=== PATIENT | female | born 1980 | race Caucasian/White ===

== ENCOUNTER 2018-09-18 08:34 | Day surgery (SDC) | payer OTHER ==
[~2018-09-18] VITALS: Ht 165.1 cm; Wt 102.3 kg
[~2018-09-18 08:34] MED LIST: DOCU100 PO; DULO60 PO; ERGO50000 PO; IBUP800 PO; LORA10ER PO; OTC ALLERGY MED; Percocet 5-3251 EACH PO
[2018-09-18] MEDS ORDERED: IBUP100S (09:01)
== END 2018-09-18 11:18 | disposition home or self-care (01) ==
LOC: ORSCSDS 08:34
PROVIDERS: Student in an Organized Health Care Education/Training Program
PROC: 0DB58ZX Excision of Esophagus, Via Natural or Artificial Opening Endoscopic, Diagnostic (ICD-10-PCS; principal; 2018-09-18 09:45)
PROC: 0DBM8ZX Excision of Descending Colon, Via Natural or Artificial Opening Endoscopic, Diagnostic (ICD-10-PCS; principal; 2018-09-18 09:45)
PROC: 0DB68ZX Excision of Stomach, Via Natural or Artificial Opening Endoscopic, Diagnostic (ICD-10-PCS; principal; 2018-09-18 09:45)
PROC: 0DB98ZX Excision of Duodenum, Via Natural or Artificial Opening Endoscopic, Diagnostic (ICD-10-PCS; principal; 2018-09-18 09:45)
PROC: 0DBN8ZX Excision of Sigmoid Colon, Via Natural or Artificial Opening Endoscopic, Diagnostic (ICD-10-PCS; principal; 2018-09-18 09:45)
DX: K92.1 Melena (principal); K21.9 Gastro-esophageal reflux disease without esophagitis; R10.9 Unspecified abdominal pain; Z80.0 Family history of malignant neoplasm of digestive organs; K29.80 Duodenitis without bleeding; D12.5 Benign neoplasm of sigmoid colon; D12.4 Benign neoplasm of descending colon; K57.30 Diverticulosis of large intestine without perforation or abscess without bleeding; K64.8 Other hemorrhoids; K29.70 Gastritis, unspecified, without bleeding; R13.14 Dysphagia, pharyngoesophageal phase
CPT/HCPCS: 88305; 88342; J2704; J7120

== ENCOUNTER 2020-04-24 08:37 | Emergency (ER) | payer OTHER ==
[~2020-04-24] VITALS: Ht 165.1 cm; Wt 106.6 kg
[~2020-04-24 08:37] MED LIST changes: +IBUP100S
[2020-04-24 09:23] LABS: Source, Urine Clean Catch
[2020-04-24 09:30] LABS: Appearance, Urine Hazy (Clear); Bilirubin, Urine Neg (Neg); Blood, Urine Neg (Neg); Color, Urine Yellow (P-Yellow); Glucose Qualitative, Urine Neg (Neg); Ketones, Urine Neg (Neg); Leukocyte Esterase, Urine Neg (Neg); Nitrite, Urine Neg (Neg); Protein, Urine Neg (Neg); Specific Gravity, Urine 1.015 (1.003-1.022); Urobilinogen, Urine NORM (Normal)
[2020-04-24 09:39] LABS: Amorphous Mod (0-Heavy); Bacteria Few /hpf; Red Blood Cells, Urine Not Seen /hpf (0-2); Squamous Epithelial Cells Many /hpf (Few); White Blood Cells, Urine Not Seen /hpf (0-5)
[2020-04-24 09:45] LABS: BASOPHILS ABSOLUTE AUTO 0.04 K/mm3 (0.00-0.23); BASOPHILS PERCENT AUTO 1 % (0-2); EOSINOPHILS ABSOLUTE AUTO 0.11 K/mm3 (0.00-0.68); EOSINOPHILS PERCENT AUTO 1 % (0-6); Hematocrit 40.6 % (33.0-51.0); IMMATURE GRAN ABSOLUTE AUTO 0.02 K/mm3 (0.00-0.10); IMMATURE GRAN PERCENT AUTO 0 % (0-1); LYMPHOCYTES ABSOLUTE AUTO 2.14 K/mm3 (0.84-5.20); LYMPHOCYTES PERCENT AUTO 24 % (21-46); MONOCYTES ABSOLUTE AUTO 0.33 K/mm3 (0.16-1.47); MONOCYTES PERCENT AUTO 4 % (4-13); Mean Corpuscular Volume 84 fL (80-100); Mean Platelet Volume 10.4 fL (9.1-12.4); NEUTROPHILS PERCENT AUTO 70 % (41-73); Platelet Count 343 K/mm3 (150-400); RDW Coefficient Variation 13.3 % (11.7-14.2); RDW Standard Deviation 41.6 fL (35.1-46.3); Red Blood Cell Count 4.81 M/mm3 (3.80-5.20); White Blood Cell Count 8.84 K/mm3 (4.00-11.30)
[2020-04-24 10:05] LABS: Alanine Aminotransfer (ALT/SGP 34 U/L (12-78); Albumin, Blood 3.5 g/dL (3.4-5.0); Albumin/Globulin Ratio 1.1 (0.8-1.8); Alk Phos 73 U/L (50-136); Anion Gap 4 mmol/L (6-16); Aspartate Aminotrans (AST/SGOT 34 U/L (12-37); Bilirubin, Total 0.6 mg/dL (0.1-1.0); Blood Urea Nitrogen 6 mg/dL (8-24); Bun/Creatinine Ratio 7.4 (12.0-20.0); CO2, Blood 28 mmol/L (21-32); Calcium, Blood 8.8 mg/dL (8.5-10.1); Chloride, Blood 110 mmol/L (98-108); Creatinine, Blood 0.81 mg/dL (0.40-1.00); Globulin, Blood 3.3 g/dL (2.2-4.0); Glomerular Filtration Rate >60 (60-); Glucose, Blood 101 mg/dL (70-99); Potassium, Blood 3.8 mmol/L (3.5-5.5); Sodium, Blood 142 mmol/L (136-145); Total Protein, Blood 6.8 g/dL (6.4-8.2)
[2020-04-24] MEDS ORDERED: ONDA4ODT MM (11:22)
[2020-04-24] MEDS ORDERED: Norco 7.5-3251 EACH PO (11:22)
== END 2020-04-24 11:34 | disposition home or self-care (01) ==
LOC: ER 08:37
PROVIDERS: Emergency Medicine
DX: M79.3 Panniculitis, unspecified (principal); Z88.8 Allergy status to other drugs, medicaments and biological substances; Z79.899 Other long term (current) drug therapy
CPT/HCPCS: 36415; 74177; 80053; 81001; 81025; 83690; 85025; 87086; 96361; 96374-59; 96375; 99284-25; J1170; J2405; J7030; Q9967

== ENCOUNTER 2020-07-21 10:06 | Day surgery (SDC) | payer OTHER ==
[~2020-07-21] VITALS: Ht 165.1 cm; Wt 102.6 kg
[~2020-07-21 10:06] MED LIST changes: +Norco 7.5-3251 EACH PO; +ONDA4ODT MM
== END 2020-07-21 12:13 | disposition home or self-care (01) ==
LOC: ORSCSDS 10:06
PROVIDERS: Student in an Organized Health Care Education/Training Program
PROC: 0DB78ZX Excision of Stomach, Pylorus, Via Natural or Artificial Opening Endoscopic, Diagnostic (ICD-10-PCS; principal; 2020-07-21 11:30)
PROC: 0DB58ZX Excision of Esophagus, Via Natural or Artificial Opening Endoscopic, Diagnostic (ICD-10-PCS; principal; 2020-07-21 11:30)
PROC: 0DBL8ZX Excision of Transverse Colon, Via Natural or Artificial Opening Endoscopic, Diagnostic (ICD-10-PCS; principal; 2020-07-21 11:30)
PROC: 0DB98ZX Excision of Duodenum, Via Natural or Artificial Opening Endoscopic, Diagnostic (ICD-10-PCS; principal; 2020-07-21 11:30)
DX: R10.13 Epigastric pain (principal); R13.10 Dysphagia, unspecified; R19.4 Change in bowel habit; K57.30 Diverticulosis of large intestine without perforation or abscess without bleeding; Z86.010 Personal history of colon polyps; Z79.899 Other long term (current) drug therapy; E66.01 Morbid (severe) obesity due to excess calories
CPT/HCPCS: 88305; 88342; J2704; J7120

== ENCOUNTER → 2025-01-02 | Outpatient (CLI) | payer OTHER ==
[~2025-01-02] MED LIST changes: +AMOCLA875 PO; +Bentyl20 MG PO
== END | disposition home or self-care (01) ==
LOC: LAB SHORT 18:22 → LAB 18:22
DX: N39.0 Urinary tract infection, site not specified (principal)
CPT/HCPCS: 87086

== ENCOUNTER 2025-01-03 17:06 | Inpatient (IN) | payer OTHER ==
[~2025-01-03] VITALS: Ht 152.4 cm; Wt 103.6 kg
[~2025-01-03 17:06] MED LIST changes: -Bentyl20 MG PO
[2025-01-03] MEDS ORDERED: NS 1,000 ML IV SCH ×2 (17:25→17:55)
[2025-01-03] MEDS ORDERED: Ketorolac Tromethamine 15mg Vial IV ONE (17:25)
[2025-01-03] MEDS ORDERED: Bentyl20 MG PO (17:32)
[2025-01-03] MEDS ORDERED: Morphine Sulfate 4 MG/1 ML Injection IV ONE (18:00)
[2025-01-03] MEDS ORDERED: Piperacillin/Tazobactam Sod 3.375 GM in NS 100 ML IV ONE (18:05)
[2025-01-03] MEDS ORDERED: FentaNYL Citrate 50 MCG/ML 2 ML Injection IV ONE (19:10)
[2025-01-03] MEDS ORDERED: Ondansetron HCl 2 MG / ML 2ML Vial IV PRN (19:30)
[2025-01-03] MEDS ORDERED: FentaNYL Citrate 50 MCG/ML 2 ML Injection IV PRN (19:30)
[2025-01-03] MEDS ORDERED: Mag Hydrox/Al Hydrox/Simeth 18 ML,Lidocaine 2% Viscous Soln 9 ML,Atropine/Scopalam/Hyos... PO ONE (19:35)
[2025-01-03 21:55] VITALS: BP 115/67
[2025-01-04] MEDS ORDERED: Piperacillin/Tazobactam Sod 3.375 GM in NS 100 ML IV SCH
--- NOTE | 2025-01-04 04:12 | NUR ---
SHIFT SUMMARY DESIREE WAS ALERT AND FULLY ORIENTED WHEN SHE ARRIVED FROM THE ED. PT WAS MILDLY PAINFUL TO LOWER ABD, AND MILDY NAUSEOUS. BOTH IMPROVED FROM PRN MEDS. ADMIT COMPLETE. NO ACUTE EVENTS AFTER ARRIVAL. PT KEPT NPO FROM TIME OF ARRIVAL. SURGICAL CONSULT ORDERED.
[2025-01-04 05:08] LABS: BASOPHILS ABSOLUTE AUTO 0.04 K/mm3 (0.00-0.23); BASOPHILS PERCENT AUTO 1 % (0-2); EOSINOPHILS ABSOLUTE AUTO 0.14 K/mm3 (0.00-0.68); EOSINOPHILS PERCENT AUTO 2 % (0-6); Hematocrit 34.6 % (33.0-51.0); Hemoglobin 11.5 g/dL (11.5-16.0); IMMATURE GRAN ABSOLUTE AUTO 0.03 K/mm3 (0.00-0.10); IMMATURE GRAN PERCENT AUTO 0 % (0-1); LYMPHOCYTES ABSOLUTE AUTO 2.14 K/mm3 (0.84-5.20); LYMPHOCYTES PERCENT AUTO 25 % (21-46); MONOCYTES ABSOLUTE AUTO 0.46 K/mm3 (0.16-1.47); MONOCYTES PERCENT AUTO 5 % (4-13); Mean Corpuscular HGB Conc 33.2 g/dL (31.5-36.5); Mean Corpuscular Volume 83 fL (80-100); NEUTROPHILS ABSOLUTE AUTO 5.68 K/mm3 (1.96-9.15); NEUTROPHILS PERCENT AUTO 67 % (41-73); NRBC ABSOLUTE 0.00 K/mm3 (0.00-0.02); NRBC Auto 0.0 /100 WBC (0.0-0.2); Platelet Count 223 K/mm3 (150-400); RDW Coefficient Variation 12.6 % (11.7-14.2); RDW Standard Deviation 38.5 fL (35.1-46.3)
[2025-01-04 05:32] LABS: Alanine Aminotransfer (ALT/SGP 17.0 U/L (12-78); Albumin, Blood 2.7 g/dL (3.4-5.0); Albumin/Globulin Ratio 0.8 (0.8-1.8); Anion Gap 6.0 mmol/L (3-11); Aspartate Aminotrans (AST/SGOT 19.0 U/L (12-37); Bilirubin, Total 0.9 mg/dL (0.1-1.0); Blood Urea Nitrogen 9.0 mg/dL (8-24); CO2, Blood 26.0 mmol/L (21-32); Calcium, Blood 8.0 mg/dL (8.5-10.1); Chloride, Blood 111.0 mmol/L (98-108); Creatinine, Blood 0.93 mg/dL (0.40-1.00); Globulin, Blood 3.5 g/dL (2.2-4.0); Glucose, Blood 95.0 mg/dL (70-99); Potassium, Blood 4.2 mmol/L (3.5-5.5); Sodium, Blood 139.0 mmol/L (136-145); Total Protein, Blood 6.2 g/dL (6.4-8.2)
[2025-01-04 06:34] VITALS: BP 104/62
[2025-01-04 07:36] VITALS: BP 107/62
[2025-01-04] MEDS ORDERED: HYDROmorphone HCl/Pf 1MG SYR IV PRN (09:35)
[2025-01-04] MEDS ORDERED: Ketorolac Tromethamine 30mg Vial IV PRN (11:50)
[2025-01-04 14:50] VITALS: BP 114/69
[2025-01-04] MEDS ORDERED: Pantoprazole Sodium 40 MG Injection IV SCH (16:30)
--- NOTE | 2025-01-04 18:29 | NUR ---
SUMMARY: PT IS A/O, VSS. INDEP IN ROOM. PT CONTINUES TO REPORT HEADACHE MAIN COMPLAINT, DR. SOSA AWARE. SEE EMAR FOR PAIN MEDS GIVEN, PT REPORTS THEY DON'T HELP AND THINKS THE THE PAIN IS A CAFFINE HEADACHE. ABD PAIN IS MINIMAL, PT NOT PASSING GAS. MEDICATED FOR INTERMITTANT NAUSEA THAT PT REPORTS IS WORSE WITH HEADACHE. IV ANTIBOTICS INFUSED, PT IS VOIDING. DR. SOSA IN ROOM TONIGHT TO DISCUSS CT RESULTS, PT TO FOLLOW UP WITH ONCOLOGY FOR RENAL MASS. NO ACUTE CONCERNS. PT USES CALL LIGHT AND MAKES NEEDS KNOWN.
[2025-01-04 18:57] LABS: Carcinoembryonic Antigen 0.5 ng/mL (0.0-3.0)
[2025-01-04 19:19] VITALS: BP 106/69
--- NOTE | 2025-01-05 04:04 | NUR ---
SHIFT SUMMARY DESIREE WAS ALERT AND FULLY ORIENTED ON ASSESSMENT. PT HAD MISSED HER 1800 ZOSYN D/T LOSS OF IV ACCESS. POWERGLIDE PLACED THIS SHIFT, ABX RESUMED. PT WITH SOME NAUSEA, IMPROVED WITH ZOFRAN. PAIN GREATLY IMPROVED TONIGHT OVER PREVIOUS NIGHT. PT SEEMS TO BE COPING WITH NEWS ABOUT HER KIDNEY MASS WELL. NO ACUTE EVENTS TONIGHT.
[2025-01-05 04:57] VITALS: BP 114/69
[2025-01-05 05:16] LABS: BASOPHILS ABSOLUTE AUTO 0.04 K/mm3 (0.00-0.23); BASOPHILS PERCENT AUTO 1 % (0-2); EOSINOPHILS ABSOLUTE AUTO 0.28 K/mm3 (0.00-0.68); EOSINOPHILS PERCENT AUTO 4 % (0-6); Hematocrit 36.9 % (33.0-51.0); Hemoglobin 11.9 g/dL (11.5-16.0); IMMATURE GRAN ABSOLUTE AUTO 0.03 K/mm3 (0.00-0.10); IMMATURE GRAN PERCENT AUTO 0 % (0-1); LYMPHOCYTES ABSOLUTE AUTO 3.38 K/mm3 (0.84-5.20); LYMPHOCYTES PERCENT AUTO 42 % (21-46); MONOCYTES ABSOLUTE AUTO 0.36 K/mm3 (0.16-1.47); MONOCYTES PERCENT AUTO 4 % (4-13); Mean Corpuscular HGB Conc 32.2 g/dL (31.5-36.5); Mean Corpuscular Volume 84 fL (80-100); NEUTROPHILS ABSOLUTE AUTO 4.02 K/mm3 (1.96-9.15); NEUTROPHILS PERCENT AUTO 50 % (41-73); NRBC ABSOLUTE 0.00 K/mm3 (0.00-0.02); NRBC Auto 0.0 /100 WBC (0.0-0.2); Platelet Count 282 K/mm3 (150-400); RDW Coefficient Variation 12.2 % (11.7-14.2); RDW Standard Deviation 37.1 fL (35.1-46.3)
[2025-01-05 05:42] LABS: Alanine Aminotransfer (ALT/SGP 18.0 U/L (12-78); Albumin, Blood 2.9 g/dL (3.4-5.0); Albumin/Globulin Ratio 0.8 (0.8-1.8); Anion Gap 9.0 mmol/L (3-11); Aspartate Aminotrans (AST/SGOT 15.0 U/L (12-37); Bilirubin, Total 0.9 mg/dL (0.1-1.0); Blood Urea Nitrogen 10.0 mg/dL (8-24); CO2, Blood 27.0 mmol/L (21-32); Calcium, Blood 8.4 mg/dL (8.5-10.1); Chloride, Blood 108.0 mmol/L (98-108); Creatinine, Blood 0.98 mg/dL (0.40-1.00); Globulin, Blood 3.7 g/dL (2.2-4.0); Glucose, Blood 80.0 mg/dL (70-99); Potassium, Blood 3.9 mmol/L (3.5-5.5); Sodium, Blood 140.0 mmol/L (136-145); Total Protein, Blood 6.6 g/dL (6.4-8.2)
[2025-01-05 07:17] VITALS: BP 106/67
--- NOTE | 2025-01-05 10:52 | NUR ---
DIET: DR DUTTA TO SEE PATIENT AND DISCUSS PLAN OF CARE. OK FOR PT TO START SIPS OF CLEARS, NO TRAY. PT HAS HAD NO PAIN OR NAUSEA THIS SHIFT. FLATUS PRESENT. WILL MONITOR TOLERANCE OF CLEARS.
--- NOTE | 2025-01-05 12:41 | NUR ---
DIET: STARTED ON CLEAR LIQUID DIET PER DR CHAVEZ. PT STATES NO NAUSEA OR PAIN.
[2025-01-05 14:21] VITALS: BP 123/62
[2025-01-05 19:10] VITALS: BP 108/66
--- NOTE | 2025-01-05 19:29 | NUR ---
PT HAS BEEN STABLE THIS SHIFT WITH MINIMAL PAIN AND NO NAUSEA. PT INDEP IN ROOM. VOIDING WELL. BM THIS EVENING. TOLERATING FL DIET, MAY ADVANCE TO LOW FIBER TOLERATED. INDIGESTION TREATED X1 WITH TUMS WHICH WERE EFFECTIVE. FLUIDS INFUSING PER ODRES IN POWERGLIDE. CONT ZOSYN. POSSIBLE DC TOMORROW.
[2025-01-06 04:05] VITALS: BP 111/63
--- NOTE | 2025-01-06 04:13 | NUR ---
.SHIFT SUMMARY VSS. PT HAS SLEPT WELL T/O THE NIGHT. SHE HAS REQUIRED NO PAIN MEDICATION OR NAUSEA MEDICATION. IVF INFUSING PER EMAR. PT ABLE TO VOID W/O DIFFICULTIES, PASSING SOME FLATTUS, NO BM THIS SHIFT. PT TOLLERATING LIQUIDS W/O N/V. OVERALL, NO ACUTE EVENTS. PLAN TO CONTINUE CARE PER PROVIDER. THE PATIENT IS CURRENTLY SLEEPING, IN NO DISTRESS, CALL LIGHT IN REACH.
[2025-01-06 07:12] VITALS: BP 134/74
[2025-01-06 11:51] LABS: BASOPHILS ABSOLUTE AUTO 0.03 K/mm3 (0.00-0.23); BASOPHILS PERCENT AUTO 0 % (0-2); EOSINOPHILS ABSOLUTE AUTO 0.17 K/mm3 (0.00-0.68); EOSINOPHILS PERCENT AUTO 2 % (0-6); Hematocrit 35.1 % (33.0-51.0); Hemoglobin 11.9 g/dL (11.5-16.0); IMMATURE GRAN ABSOLUTE AUTO 0.02 K/mm3 (0.00-0.10); IMMATURE GRAN PERCENT AUTO 0 % (0-1); LYMPHOCYTES ABSOLUTE AUTO 2.35 K/mm3 (0.84-5.20); LYMPHOCYTES PERCENT AUTO 31 % (21-46); MONOCYTES ABSOLUTE AUTO 0.35 K/mm3 (0.16-1.47); MONOCYTES PERCENT AUTO 5 % (4-13); Mean Corpuscular HGB Conc 33.9 g/dL (31.5-36.5); Mean Corpuscular Volume 82 fL (80-100); NEUTROPHILS ABSOLUTE AUTO 4.73 K/mm3 (1.96-9.15); NEUTROPHILS PERCENT AUTO 62 % (41-73); NRBC ABSOLUTE 0.00 K/mm3 (0.00-0.02); NRBC Auto 0.0 /100 WBC (0.0-0.2); Platelet Count 274 K/mm3 (150-400); RDW Coefficient Variation 11.9 % (11.7-14.2); RDW Standard Deviation 35.8 fL (35.1-46.3)
[2025-01-06 12:09] LABS: Anion Gap 7.0 mmol/L (3-11); Blood Urea Nitrogen 8.0 mg/dL (8-24); CO2, Blood 27.0 mmol/L (21-32); Calcium, Blood 8.3 mg/dL (8.5-10.1); Chloride, Blood 109.0 mmol/L (98-108); Creatinine, Blood 0.97 mg/dL (0.40-1.00); Glucose, Blood 115.0 mg/dL (70-99); Potassium, Blood 4.0 mmol/L (3.5-5.5); Sodium, Blood 139.0 mmol/L (136-145)
[2025-01-06 14:37] VITALS: BP 125/77
--- NOTE | 2025-01-06 18:03 | NUR ---
PT HAS BEEN STABLE THIS SHIFT. PT HAS BEEN STATING THAT SHE "DOESN'T FEEL RIGHT." SHE WOULD LIKE TO STAY OVERNIGHT VS DC. MD AWARE AND OK WITH IT. PT HAS REQUIRED NO PAIN MEDICATION. PT HAS NO NAUSEA. TOLERATING LOW FIBER DIET. PT HAS HAD A TOTAL OF 3 BM'S SINCE ADMISSION. VOIDING WELL. IV SL EXCEPT FOR ABX. PT INDEP IN ROOM. POSSIBLE DC TOMORROW.
[2025-01-06 19:37] VITALS: BP 116/61
[2025-01-07 05:49] VITALS: BP 119/68
[2025-01-07 06:22] LABS: Anion Gap 10.0 mmol/L (3-11); Blood Urea Nitrogen 8.0 mg/dL (8-24); CO2, Blood 27.0 mmol/L (21-32); Calcium, Blood 8.2 mg/dL (8.5-10.1); Chloride, Blood 108.0 mmol/L (98-108); Creatinine, Blood 1.11 mg/dL (0.40-1.00); Glucose, Blood 105.0 mg/dL (70-99); Potassium, Blood 3.8 mmol/L (3.5-5.5); Sodium, Blood 141.0 mmol/L (136-145)
--- NOTE | 2025-01-07 07:35 | NUR ---
SUMMARY PT PLANS FOR DISCHARGE HOME TODAY.HAS HAD BM.TOLERATING DIET.VOIDING.
--- NOTE | 2025-01-07 07:35 | NUR ---
ASSUMPTION NOTE: THIS RN TO ASSUME CARE OF PATIENT. PATIENT IS SITTING UP IN BED SCROLLING ON HER PHONE, ANTIBIOTIC RUNNING INTO POWERGLIDE. PATIENT DENIED ANY CHEST PAIN/PRESSURE OR FEELING SHORT OF BREATH. REPORTED SOME RIGHT ELBOW PAIN BUT DENIED NEEDING ANYTHING FOR IT,IS SITING ON PILLOW AND OFFERED HEATING PACK BUT DECLINED. PATIENT PLAN WILL BE GOING HOME TODAY PENDING SEEING DOCTOR. HAS CALL LIGHT WITHIN REACH DENIED NEEDING ANYTHING ELSE AT THIS TIME.
--- NOTE | 2025-01-07 09:12 | NUR ---
ROUNDED: ROUNDED AND SPOKE WITH PATIENT. PATIENT TO GO HOME TODAY AWAITING TO SEE IF A UROLOGIST WOULD BE ABLE TO SEE PATIENT PRIOR TO DISCHARGE. OTHERWISE IF NOT SHE WILL BE SCHEDULED WITH THEM OUTPATIENT.
[2025-01-07] MEDS ORDERED: AMOCLA875 PO (10:09)
--- NOTE | 2025-01-07 10:52 | NUR ---
DISCHARGE NOTE: PATIENT SISTERS WAS RIDE. PATIENT UNDERSTOOD TO GET A PRIMARY CARE PROVIDER SET UP AND A REFERRAL WAS SENT OVER TO ONCOLOGY & UROLOGY FOR SCANS. PATIENT RECCOMENDED TO CALL TO CONFIRM REFRARRAL DUE TO NOT HAVING A PRIMARY PROVIDER. PATIENT AWARE ANTIBIOTICS PRESCRIBED AND TO BE PICKED UP AT [facility] IN [place]. PATIENT WALKED OUT WITH ALL PERSONAL BELONGINGS AND POWERGLIDE TAKEN OUT.
== END 2025-01-07 10:51 | disposition home or self-care (01) | DRG 392 ==
LOC: ER 17:06 → SURS 19:27
PROVIDERS: Family Medicine; Nurse Practitioner Acute Care; ADMIT Student in an Organized Health Care Education/Training Program
DX: K57.20 Diverticulitis of large intestine with perforation and abscess without bleeding (principal); Z68.41 Body mass index [BMI] 40.0-44.9, adult; M79.7 Fibromyalgia; E66.01 Morbid (severe) obesity due to excess calories; N28.89 Other specified disorders of kidney and ureter; R10.32 Left lower quadrant pain; Z79.891 Long term (current) use of opiate analgesic; Z79.899 Other long term (current) drug therapy; Z88.8 Allergy status to other drugs, medicaments and biological substances; Z98.891 History of uterine scar from previous surgery; Z90.49 Acquired absence of other specified parts of digestive tract; Z90.710 Acquired absence of both cervix and uterus; Z87.19 Personal history of other diseases of the digestive system
CPT/HCPCS: 36415; 71260; 74177; 76770; 80048; 80053; 82378; 85025; 86304; 96374-59; 96375; 99285-25; A9270; J1171; J1885; J2270; J2405; J2470; J2543; J3010; J7030; J7120; Q9967

== ENCOUNTER → 2025-01-03 | Outpatient (CLI) | payer OTHER ==
[~2025-01-03] MED LIST changes: -AMOCLA875 PO
[2025-01-03 14:20] LABS: BASOPHILS ABSOLUTE AUTO 0.03 K/mm3 (0.00-0.23); BASOPHILS PERCENT AUTO 0 % (0-2); EOSINOPHILS ABSOLUTE AUTO 0.24 K/mm3 (0.00-0.68); EOSINOPHILS PERCENT AUTO 2 % (0-6); Hematocrit 42.4 % (33.0-51.0); Hemoglobin 14.2 g/dL (11.5-16.0); IMMATURE GRAN ABSOLUTE AUTO 0.06 K/mm3 (0.00-0.10); IMMATURE GRAN PERCENT AUTO 1 % (0-1); LYMPHOCYTES ABSOLUTE AUTO 2.83 K/mm3 (0.84-5.20); LYMPHOCYTES PERCENT AUTO 22 % (21-46); MONOCYTES ABSOLUTE AUTO 0.61 K/mm3 (0.16-1.47); MONOCYTES PERCENT AUTO 5 % (4-13); Mean Corpuscular HGB Conc 33.5 g/dL (31.5-36.5); Mean Corpuscular Volume 82 fL (80-100); NEUTROPHILS ABSOLUTE AUTO 9.06 K/mm3 (1.96-9.15); NEUTROPHILS PERCENT AUTO 71 % (41-73); NRBC ABSOLUTE 0.00 K/mm3 (0.00-0.02); NRBC Auto 0.0 /100 WBC (0.0-0.2); Platelet Count 296 K/mm3 (150-400); RDW Coefficient Variation 12.7 % (11.7-14.2); RDW Standard Deviation 38.1 fL (35.1-46.3)
[2025-01-03 14:31] LABS: Alanine Aminotransfer (ALT/SGP 20.0 U/L (12-78); Albumin, Blood 3.7 g/dL (3.4-5.0); Albumin/Globulin Ratio 0.8 (0.8-1.8); Anion Gap 14.0 mmol/L (3-11); Aspartate Aminotrans (AST/SGOT 16.0 U/L (12-37); Bilirubin, Total 1.0 mg/dL (0.1-1.0); Blood Urea Nitrogen 8.0 mg/dL (8-24); CO2, Blood 25.0 mmol/L (21-32); Calcium, Blood 9.5 mg/dL (8.5-10.1); Chloride, Blood 106.0 mmol/L (98-108); Creatinine, Blood 1.06 mg/dL (0.40-1.00); Globulin, Blood 4.4 g/dL (2.2-4.0); Glucose, Blood 85.0 mg/dL (70-99); Potassium, Blood 3.9 mmol/L (3.5-5.5); Sodium, Blood 141.0 mmol/L (136-145); Total Protein, Blood 8.1 g/dL (6.4-8.2)
== END | disposition home or self-care (01) ==
LOC: LAB SHORT 14:16 → LAB 14:16
PROVIDERS: Physician Assistant
DX: R10.32 Left lower quadrant pain (principal)
CPT/HCPCS: 80053; 85025

== ENCOUNTER 2025-02-20 09:19 | Inpatient (IN) | payer OTHER ==
[2025-02-20] VITALS (13 sets, daily range): BP systolic 108–119; BP diastolic 59–79
[~2025-02-20] VITALS: Ht 163.5 cm; Wt 104.4 kg
[~2025-02-20 09:19] MED LIST changes: +AMOCLA875 PO; +Bentyl20 MG PO; +Cyclobenzaprine5 MG PO; +ONDA4 PO
[2025-02-20] MEDS ORDERED: CeFAZolin Sodium 2,000 MG in NS 100 ML IV SCH (09:50)
[2025-02-20] MEDS ORDERED: CeFAZolin Sodium 2,000 MG VIAL ONE (09:52)
[2025-02-20] MEDS ORDERED: LANS15EC PO (10:17)
--- NOTE | 2025-02-20 10:38 | NUR ---
History, Chart, Medications and Allergies reviewed before start of procedure. Patient up to Ambulate independently. Gait steady. Pre-Op teaching done. Pt verbalizes understanding. Patient confirms NPO status and agrees with scheduled surgery. Patient reports completing Chlorhexadine shower X2 prior to admission to hospital. Surgical site prepped with 2% Chlorhexidine cloth wipe. Lungs clear T/O to Auscultation.
[2025-02-20] MEDS ORDERED: Midazolam HCl 1MG / ML 2ML Vial ONE (10:50)
[2025-02-20] MEDS ORDERED: FentaNYL Citrate 50 MCG/ML 5 ML Injection ONE (10:50)
[2025-02-20] MEDS ORDERED: Sugammadex Sodium 200 MG/2ML SDV (100 MG/ML) ONE (11:04)
[2025-02-20] MEDS ORDERED: Rocuronium Bromide 10 MG/ML 5ML Injection IV ONE ×3 (11:04→14:04)
[2025-02-20] MEDS ORDERED: Bupivacaine 0.25% Epi 1:200000 30 ML Vial ONE (11:32)
[2025-02-20] MEDS ORDERED: Ondansetron HCl 2 MG / ML 2ML Vial ONE (12:40)
[2025-02-20] MEDS ORDERED: Dexamethasone Sod Phos 10 MG/ML 1ML VIAL ONE (12:40)
[2025-02-20] MEDS ORDERED: Ondansetron HCl 2 MG / ML 2ML Vial IV PRN ×3 (13:25→16:25)
[2025-02-20] MEDS ORDERED: FentaNYL Citrate 50 MCG/ML 2 ML Injection IV PRN ×2 (13:25)
[2025-02-20] MEDS ORDERED: HYDROmorphone HCl/Pf 1MG SYR IV PRN ×2 (13:25→13:30)
[2025-02-20] MEDS ORDERED: HYDROmorphone HCl/Pf 1MG SYR ONE (14:19)
[2025-02-20] MEDS ORDERED: FLU VACC TS2025-26(6MOS UP)/PF 45 MCG/0.5 ML SYRINGE IM SCH (15:10)
[2025-02-20] MEDS ORDERED: NS 1,000 ML IV SCH (15:15)
--- NOTE | 2025-02-20 15:43 | NUR ---
PT TO ROOM 213 FROM PACU. POST OP VS STARTED. 5 LAP SITES WITH DERMABOND CDI. IV INFUSING RFA. SHAH CATHETER IN PLACE DRAINING DESIREE URINE. PT PRESENTLY DENIES PAIN. WILL CONTINUE TO MONITOR.
[2025-02-20] MEDS ORDERED: OxyCODONE 5 mg/Acetamin 325 mg TABLET PO PRN (16:25)
[2025-02-20] MEDS ORDERED: Morphine Sulfate 4 MG/1 ML Injection IV PRN (16:25)
--- NOTE | 2025-02-20 18:02 | NUR ---
COMPUTER CRASHED WHILE I WAS DOCUMENTING PERCOCET. UNABLE TO CHART MEDICATION. I GAVE TWO TABS OF PERCOCET AT 1750. KEG FILLER NOTIFIED. APPARANTLY THIS IS NORMAL AT THIS FACILITY AND IS NOW LOCKED OUT FOR "A SIGNIFICANT AMOUNT OF TIME". WILL CONTINUE TO MONITOR.
[2025-02-20] MEDS ORDERED: Lactobacil 2-S.Thermo-Bifido 1 1 Cap PO SCH (21:00)
[2025-02-21 01:00] LABS: BASOPHILS ABSOLUTE AUTO 0.01 K/mm3 (0.00-0.23); BASOPHILS PERCENT AUTO 0 % (0-2); EOSINOPHILS ABSOLUTE AUTO 0.00 K/mm3 (0.00-0.68); EOSINOPHILS PERCENT AUTO 0 % (0-6); Hematocrit 39.9 % (33.0-51.0); Hemoglobin 13.5 g/dL (11.5-16.0); IMMATURE GRAN ABSOLUTE AUTO 0.03 K/mm3 (0.00-0.10); IMMATURE GRAN PERCENT AUTO 0 % (0-1); LYMPHOCYTES ABSOLUTE AUTO 0.77 K/mm3 (0.84-5.20); LYMPHOCYTES PERCENT AUTO 8 % (21-46); MONOCYTES ABSOLUTE AUTO 0.18 K/mm3 (0.16-1.47); MONOCYTES PERCENT AUTO 2 % (4-13); Mean Corpuscular HGB Conc 33.8 g/dL (31.5-36.5); Mean Corpuscular Volume 82 fL (80-100); NEUTROPHILS ABSOLUTE AUTO 8.52 K/mm3 (1.96-9.15); NEUTROPHILS PERCENT AUTO 90 % (41-73); NRBC ABSOLUTE 0.00 K/mm3 (0.00-0.02); NRBC Auto 0.0 /100 WBC (0.0-0.2); Platelet Count 313 K/mm3 (150-400); RDW Coefficient Variation 13.2 % (11.7-14.2); RDW Standard Deviation 38.9 fL (35.1-46.3)
--- NOTE | 2025-02-21 01:15 | NUR ---
2216 PT REPORTED A SUDDEN ONSET OF TINGLING L SHOULDER,ARM,HAND,AND L FOOT WITH IMMEDIATE EMESIS FOLLOWING.PT REPORTED IMPROVEMENT OF TINGLING, BUT REPORTED A HEADACHE "VIBRATION TO L SIDE OF HEAD,L MOUTH,INCLUSIVE OF ENTIRE L SIDE.DENIES HX MIGRAINES,PUPILS EQUAL AND REACTIVE,TRACKS APPROPRIATELY,BACK END WEB DEVELOPER EQUALLY STRONG WITH NO DRIFT,DORSI AND PLANTAR FLEX STRONG AND EQUAL,NO MOUTH DROOP,REMAINS ALERT AND ORIENTED WITH NO CP OR SOB.2237-SEE VS 2252 CALL OUT TO ANS SERVICE,230 MORPHINE WAS GIVEN MONITORING FOR RESOLUTION OF HEADACHE,2350 PLACE CALL TO CELL PHONE AND ADVISED OF ABOVE WITH DR ORDER RECEIVED FOR HOSPITALIST CX.[id number] DR ALMENDAREZ HERE TO ASSESS PT-SEE CX NOTE,LAB RESULTS NOTED.
[2025-02-21 01:20] LABS: Alanine Aminotransfer (ALT/SGP 22.0 U/L (12-78); Albumin, Blood 3.4 g/dL (3.4-5.0); Albumin/Globulin Ratio 1.0 (0.8-1.8); Anion Gap 8.0 mmol/L (3-11); Aspartate Aminotrans (AST/SGOT 22.0 U/L (12-37); Bilirubin, Total 0.7 mg/dL (0.1-1.0); Blood Urea Nitrogen 7.0 mg/dL (8-24); CO2, Blood 26.0 mmol/L (21-32); Calcium, Blood 8.4 mg/dL (8.5-10.1); Chloride, Blood 108.0 mmol/L (98-108); Creatinine, Blood 0.91 mg/dL (0.40-1.00); Globulin, Blood 3.3 g/dL (2.2-4.0); Glucose, Blood 155.0 mg/dL (70-99); Magnesium, Blood 1.7 mg/dL (1.6-2.4); Potassium, Blood 4.1 mmol/L (3.5-5.5); Sodium, Blood 138.0 mmol/L (136-145); Total Protein, Blood 6.7 g/dL (6.4-8.2)
[2025-02-21 03:03] VITALS: BP 116/67
--- NOTE | 2025-02-21 03:26 | NUR ---
PT REPORTS SURGICAL PAIN STILL ADEQUATELY CONTROLLED.REPORTS STILL HAVING SOME LOW LEVEL VIBRATIONS TO L SIDE,ALTHOUGH REPORTS IS LESS SINCE RECEIVING MORPHINE.AT THIS TIME,PT VERB NO LONGER HAS L FACIAL INVOLVEMENT WITH VIBRATION. ORDERED VENOUS DUPLEX FOR AM DUE TO REPORTED ISSUES PT NOTED AT HOME RECENTLY. I CONFIRMED WITH DR ALMENDAREZ IT IS OK TO CONTINUE WITH PAS PUMPS BILAT AT THIS TIME.
[2025-02-21 07:08] VITALS: BP 121/64
--- NOTE | 2025-02-21 08:05 | NUR ---
SUMMARY PT REPORTS VIBRATIONS ALMOST COMPLETELY RESOLVED- PENDING VENOUS DOPPLER STUDY THIS AM.
[2025-02-21 14:21] VITALS: BP 107/54
--- NOTE | 2025-02-21 17:12 | NUR ---
SUMMARY NO ACUTE CHANGES SINCE ASSUMING CARE OF PT FROM SHIMON Camacho RN AT 1500. PT RESTING IN BED, DENIES ANY NEEDS. SHAH DRAINING DESIREE URINE. CALL LIGHT IN REACH.
[2025-02-21 19:13] VITALS: BP 110/59
[2025-02-22 03:44] VITALS: BP 114/56
--- NOTE | 2025-02-22 05:03 | NUR ---
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 LAP SITES C/D/I. PT MEDICATED FOR PAIN X1 TOWARD END OF SHIFT, SLEPT WELL THROUGH THE NIGHT. HAS TOLERATED PO INTAKE AND DENIES NAUSEA TONIGHT. SHAH CATH PATENT AND DRAINING DESIREE URINE WITH A PINK TINGE. VSS, JERICHO.
[2025-02-22 07:08] VITALS: BP 128/69
[2025-02-22 14:42] VITALS: BP 111/61
--- NOTE | 2025-02-22 19:19 | NUR ---
SHIFT SUMMARY PT IS POD#2. PAIN MANAGEMENT HAS BEEN A CHALLENGE TODAY. DR. SAM NOTIFIED OF PT'S NEED FOR IV MORPHINE BETWEEN DOSES OF PERCOCET. TRAMADOL ADDED. EDUCATED ABOUT ALTERNATING PAIN MEDICATION TO AVOID THE NEED FOR MORPHINE, PT VERBALIZED UNDERSTANDING. PT IS A SBA WHEN OOB. SHE HAS BEEN ENCOURAGED TO AMBULATE 4X PER DAY. SHE WAS ALSO ENCOURAGED TO USE HER INCENTIVE SPIROMETER. BEDSIDE REPORT GIVEN TO STEVE RN.
[2025-02-22 20:11] VITALS: BP 126/63
[2025-02-23 03:42] VITALS: BP 117/77
--- NOTE | 2025-02-23 05:09 | NUR ---
BIOLOGICAL CHEMIST SUMMARY PT IS POD 2 FOR PARTIAL NEPHRECTOMY. LAP SITES TO ABD C/D/I. PAIN HAS BEEN WELL MANAGED WITH PO PAIN MEDS, SEE MAR. PT LOST IV ACCESS AT BEGINNING OF SHIFT, NOTIFIED DR SAM AND RECEIVED ORDER TO LEAVE OUT IV AND TO DC SHAH CATHETER AT MIDNIGHT. SHAH DC'D AND PT ABLE TO VOID ON HER OWN LATER IN THE MORNING. VSS, WCTM.
[2025-02-23 07:26] VITALS: BP 120/61
[2025-02-23] MEDS ORDERED: Ondansetron 4 MG SoluTab SL PRN (11:55)
[2025-02-23 13:15] LABS: Hematocrit 36.6 % (33.0-51.0); Hemoglobin 12.5 g/dL (11.5-16.0); Mean Corpuscular HGB Conc 34.2 g/dL (31.5-36.5); Mean Corpuscular Volume 83 fL (80-100); NRBC ABSOLUTE 0.00 K/mm3 (0.00-0.02); NRBC Auto 0.0 /100 WBC (0.0-0.2); Platelet Count 285 K/mm3 (150-400); RDW Coefficient Variation 13.1 % (11.7-14.2); RDW Standard Deviation 39.6 fL (35.1-46.3)
[2025-02-23 13:51] LABS: Anion Gap 7.0 mmol/L (3-11); Blood Urea Nitrogen 6.0 mg/dL (8-24); CO2, Blood 28.0 mmol/L (21-32); Calcium, Blood 8.3 mg/dL (8.5-10.1); Chloride, Blood 104.0 mmol/L (98-108); Creatinine, Blood 0.82 mg/dL (0.40-1.00); Glucose, Blood 101.0 mg/dL (70-99); Potassium, Blood 3.4 mmol/L (3.5-5.5); Sodium, Blood 136.0 mmol/L (136-145)
[2025-02-23 14:28] VITALS: BP 117/71
--- NOTE | 2025-02-23 15:30 | NUR ---
PT REPORTS DIZZINESS IS IMPROVING. DR. SAM NOTIFIED.
--- NOTE | 2025-02-23 16:34 | NUR ---
SHIFT SUMMARY PT IS POD# 3 FROM PARTIAL NEPHRECTOMY. PT STAYED TODAY R/T TO REDNESS AT TWO ON HER INCISION SITES. SHE WAS STARTED ON PO PAIN MEDICATION. PT REPORTS PAIN CONTROL HAS BEEN BETTER TODAY AND SHE HAS BEEN ABLE TO SPACE OUT HER PAIN MEDICATION. PT HAS AMBULATED IN THE HALWAYS X2, SHE HAS BEEN ENCOURAGED TO AMBULATE MORE. PT COMPLAINED OF SINUS PRESSURE AND DIZZINESS THIS MORNING, SHE REPORTS BOTH HAVE IMPROVED AFTER TAKING SUDAFED. FAMILY HAS BEEN AT THE BEDSIDE AND SUPPORTIVE T/O THE DAY. SHE CALLS APPROPRIATELY. PT HAS BEEN INDEPENDENT IN THE ROOM.
[2025-02-23 19:18] VITALS: BP 129/67
[2025-02-24 04:59] VITALS: BP 125/72
[2025-02-24 05:49] LABS: Hematocrit 35.4 % (33.0-51.0); Hemoglobin 12.0 g/dL (11.5-16.0); Mean Corpuscular HGB Conc 33.9 g/dL (31.5-36.5); Mean Corpuscular Volume 83 fL (80-100); NRBC ABSOLUTE 0.00 K/mm3 (0.00-0.02); NRBC Auto 0.0 /100 WBC (0.0-0.2); Platelet Count 272 K/mm3 (150-400); RDW Coefficient Variation 13.2 % (11.7-14.2); RDW Standard Deviation 39.7 fL (35.1-46.3)
[2025-02-24 06:05] LABS: Anion Gap 6.0 mmol/L (3-11); Blood Urea Nitrogen 6.0 mg/dL (8-24); CO2, Blood 30.0 mmol/L (21-32); Calcium, Blood 8.3 mg/dL (8.5-10.1); Chloride, Blood 104.0 mmol/L (98-108); Creatinine, Blood 0.85 mg/dL (0.40-1.00); Glucose, Blood 100.0 mg/dL (70-99); Potassium, Blood 3.4 mmol/L (3.5-5.5); Sodium, Blood 137.0 mmol/L (136-145)
--- NOTE | 2025-02-24 06:08 | NUR ---
SUMMARY: PT IS A/OX4, ENDORSES NEEDS AND IN INDEPENDENT IN ROOM. SHE'S POD 3 S/P L.PARTIAL NEPHROSTOMY W/X5 LAP SITES INTACT. REDNESS PERSISTS TO TWO OF THE INCISION SITES BUT HAS RECEEDED FROM [employer] [place] SINCE COMMENCING PO ABX AND APPLYING BACITRACIN OINTMENT. SHE CONT'S TO REPORT L.FLANK AND BACK PAIN BUT PRN PERCOCET WAS RECEIVED X2 DOSES FOR TOLERABLE EFFECT. BT'S (+) X4 QUADS AND SHE'S PASSING FLATUS BUT STILL HASN'T HAD A BM DESPITE RECIEVING COLACE. PT ALSO C/O INTERMITTENT SINUS PRESSURE, "CLICKING IN EARS" AND ASSOCIATED DIZZINESS W/PRN SUDAFED PROVIDED PER FOR RELIEF. NO ACUTE CHANGES, VSS/AFEBRILE. WILL REPORT TO DAY RN.
--- NOTE | 2025-02-24 06:27 | NUR ---
SUMMARY: PT IS A/OX4, ENDORSES NEEDS AND IN INDEPENDENT IN ROOM. SHE'S POD 4 S/P L.PARTIAL NEPHROSTOMY W/X5 LAP SITES INTACT. REDNESS PERSISTS TO TWO OF THE INCISION SITES BUT HAS RECEEDED FROM [employer] SINCE COMMENCING PO ABX AND APPLYING BACITRACIN OINTMENT. SHE CONT'S TO REPORT L.FLANK AND BACK PAIN BUT PRN PERCOCET WAS RECEIVED X2 DOSES FOR TOLERABLE EFFECT. BT'S (+) X4 QUADS AND SHE'S PASSING FLATUS BUT STILL HASN'T HAD A BM DESPITE RECIEVING COLACE. PT ALSO C/O INTERMITTENT SINUS PRESSURE, "CLICKING IN EARS" AND ASSOCIATED DIZZINESS W/PRN SUDAFED PROVIDED PER FOR RELIEF. NO ACUTE CHANGES, VSS/AFEBRILE. WILL REPORT TO DAY RN.
[2025-02-24 07:53] VITALS: BP 125/71
[2025-02-24] MEDS ORDERED: AMOX-CLAV 875-1 EAC5 PO (08:42)
[2025-02-24] MEDS ORDERED: Percocet 5-3251 EACH PO (08:43)
--- NOTE | 2025-02-24 10:14 | NUR ---
DISCHARGE ALL INSTRCUTIONS READ AND SIGNED. CALL TO CONFIRM PRESCRIPTIONS WERE RECIEVED AT [facility]. PATIENT IS VOIDING, PASSING FLATUS, TOLERATING PO INTAKE. PAIN IS MANAGED PER ORDERS. NO IV TO TAKE OUT PATIENT FAMILY IS HERE TO DRIVE HOME.
== END 2025-02-24 10:45 | disposition home or self-care (01) | DRG 661 ==
LOC: ORSCMMR 09:19 → ORD 10:30 → ORSCMMR 15:07 → SURS 15:07
PROVIDERS: Student in an Organized Health Care Education/Training Program; ADMIT Urology
PROC: 3E03329 Introduction of Other Anti-infective into Peripheral Vein, Percutaneous Approach (ICD-10-PCS; principal; 2025-02-20 11:00)
PROC: 0TT14ZZ Resection of Left Kidney, Percutaneous Endoscopic Approach (ICD-10-PCS; principal; 2025-02-20 11:00)
PROC: 8E0W4CZ Robotic Assisted Procedure of Trunk Region, Percutaneous Endoscopic Approach (ICD-10-PCS; principal; 2025-02-20 11:00)
DX: N28.89 Other specified disorders of kidney and ureter (principal); M54.9 Dorsalgia, unspecified; G89.29 Other chronic pain; M79.7 Fibromyalgia; R20.2 Paresthesia of skin; M79.89 Other specified soft tissue disorders; Z77.22 Contact with and (suspected) exposure to environmental tobacco smoke (acute) (chronic); Z87.19 Personal history of other diseases of the digestive system; Z90.49 Acquired absence of other specified parts of digestive tract; Z90.710 Acquired absence of both cervix and uterus; Z98.891 History of uterine scar from previous surgery; Z79.899 Other long term (current) drug therapy; Z88.8 Allergy status to other drugs, medicaments and biological substances; Z98.51 Tubal ligation status
CPT/HCPCS: 36415; 74170; 80048; 80053; 83735; 85025; 85027; 86850; 86900; 86901; 88307; 93971; A9270; J0690; J1100; J1171; J2250; J2270; J2405; J2704; J3010; J7030; J7120; Q9967